=== PATIENT | male | born 1955 | race African-American/Black ===

== ENCOUNTER 2016-07-06 10:50 | Emergency (ER) | payer BC ==
--- NOTE | 2016-07-06 11:42 | ERNOTE ---
Date of Service: 07/06/16 Time Seen by Provider: 07/06/16 11:41 Stated Complaint: SINUS INFECTION Presenting Symptoms:: cough, runny nose Source: patient Exam Limitations: no limitations Immunizations: IMMUNIZATION HX Immunizations Up to Date Yes History of Influenza Vaccine No Hx Pneumococcal Vaccination No Allergies/Adverse Reactions: Allergies No Known Allergies Allergy (Verified 07/06/16 10:58) Home Medications: HOME MEDICATIONS Oxymetazoline HCl [Afrin] 2 sprays NS BID #1 bottle 05/07/16 [Last Taken Unknown ] Naproxen [Naprosyn] 500 mg PO BID PRN 07/06/16 [Last Taken Unknown] Pseudoephedrine HCl [Sudafed] 60 mg PO QID PRN 07/06/16 [Last Taken Unknown] - History of Present Ilness Date (Duration): 07/02/16 Timing: constant Severity: moderate Frequency/Possible Cause: Reports: frequent episodes Modifying Factors - Worsens: Reports: lying down Associated Symptoms: Reports: nasal congestion, nasal drainage - he states he has stuffy ears , no ear pain. . Denies: fever/chills Prior Treatment: Reports: treated by physician - states he was on a bid nasal spray. , other - says he saw a doctor several weeks ago for similar symptoms Review of Systems - Narrative Narrative: Pt. is concerned about having 5 days of chronic congestion with some cough . No SOB or known fever but some sweating in the a.m. He had similar problems about 2 months ago. He wonders if he has pneumonia. He is a smoker. His has had him on otc meds. He says he is more congested in the mornings. He denies any sinus pains and is generally healthy. Influ. is prominent in community. - Review of Systems Constitutional: Present: See HPI, recent illness EYE: Present: no symptoms reported ENT: Present: See HPI, ear pain, nose congestion, nasal drainage Respiratory: Present: cough Cardiology: Present: no symptoms reported Gastrointestinal/Abdominal: Present: no symptoms reported Genitourinary: Present: no symptoms reported Musculoskeletal: Present: no symptoms reported Skin: Present: no symptoms reported Neurological: Present: no symptoms reported Endocrine: Present: no symptoms reported Hematologic/Lymphatic: Present: no symptoms reported Psych: Present: no symptoms reported All Other Systems: All systems neg except as marked - Patient's Past Medical History Patient History - Medical: Chronic Pain Patient History - Cardiac/Respiratory: Hypertension Patient History - Cancer: No Hx of Cancer Patient History - Surgical Procedures: No surgical history Patient History - Other: None - Social History Living Situations: home Abuse History: No History of abuse Psych History: No pertinent hx Does anyone smoke in the home?: Yes Smoking Status: Current every day smoker Alcohol Use: none Drug Use: none - Immunizations Immunizations Up to Date: Yes Hx Pneumococcal Vaccination: No History of Influenza Vaccine: No Physical Exam - Physical Exam General Appearance: Present: wd/wn, alert, no apparent distress Eye Exam: Normal inspection: bilateral - normal , PERRL: bilateral - normal, EOMI: bilateral - normal, Eye drainage: bilateral - none Ears, Nose, Throat: Present: nasal congestion - red swollen turbinates with congestion. , pharyngeal erythema. Absent: sinus pain/drainage - no pain to percussion , pharyngeal swelling, tonsillar exudate, tonsillar swelling Neck: Present: normal inspection, nontender. Absent: lymphadenopathy (L) Respiratory: Present: no respiratory distress, normal breath sounds, no accessory muscle use, chest nontender, rhonchi - first large breath with ronchi which cleared after a cough and deep breath. Cardiovascular/Chest: Present: regular rate, rhythm, no murmur, normal peripheral pulses Neurological Exam: Present: alert, oriented, normal mood/affect Skin Exam: Present: normal color, warm/dry Lymphatic Exam: Present: no adenopathy ED Progress - Results and Orders Patient's Lab Results:: I have reviewed the patient's lab results. Results and Orders: influenza negative - Vital Signs Patient's Vital Signs:: I have reviewed the patient's vital signs. - pt= chronic htn. & may be using cold med with decongestant which I told him to d/c Vital Signs: Vital Signs 07/06/16 10:54 Temperature 36.2 C L Pulse Rate 64 Respiratory 18 Rate Blood Pressure 152/113 O2 Sat by Pulse 100 Oximetry - Progress/Reassessment Chief Complaint: Upper Respiratory Symptoms Departure - Departure Clinical Impression: URI (upper respiratory infection) Qualifiers: URI type: acute nasopharyngitis (common cold) Qualified Code(s): J00 - Acute nasopharyngitis [common cold] Disposition: Home self-care Condition: Good Instructions: Upper Respiratory Infection, Adult, [id number] Additional Instructions: Increase fluids to keep mucous loose. Use Neti-Pot ( salt water irrigation to nose) as directed to help clear up the mucous. use vaporizer at your bedside to help decrease congestion. Consider 3 days use only of afrin nasal spray. For longer term congestion, using over the counter nasocort or flonase twice a day may help. Your influenza was negative. Use tylenol for aches or pains or fever.
--- OUTSIDE RECORDS SUMMARY | 2016-07-06 11:46 | XMS REPORT | Summary of Care ---
:1955 Author Organization [facility] Address [address] [place] [address] Care Team Providers Name Role Phone Physician, Primary Care Primary Care Physician Unavailable Encounter Date(s): 06/15/16 - 06/15/[address] [id number] Discharge Disposition: 01 Discharged to Home or Self Care Attending Physician: AIMEE Wilkes Vital Signs No data available for this section Problem List No data available for this section Allergies, Adverse Reactions, Alerts No Known Medication Allergies Medications carvedilol 25 mg oral tablet 1 tab(s), Oral, BID, # 180 tab(s), 0 Refill(s), Start Date: 03/15/16 14:00:00 CDT, Pharmacy: [facility] [id number] Start Date: 03/15/16 Status: Orderedcarvedilol 25 mg oral tablet 1 tab(s), Oral, BID, 0 Refill(s), Start Date: 03/15/16 13:34:00 CDT Start Date: 03/15/16 Stop Date: 03/15/16 Status: DiscontinuedChantix Starter Pack 0.5 mg-1 mg oral tablet 1 tab(s), Oral, BID, as directed on package labeling, # 53 tab(s), 0 Refill(s), Start Date: 03/15/16 14:00:00 CDT, Pharmacy: [facility] [id number] Start Date: 03/15/16 Status: OrderedhydroCHLOROthiazide 25 mg oral tablet 1 tab(s), Oral, Daily, # 30 tab(s), 0 Refill(s), Start Date: 03/15/16 14:00:00 CDT Start Date: 03/15/16 Status: Orderedhydrocodone-acetaminophen 7.5mg-325mg oral tablet 1 tab(s), Oral, q6hr, PRN for pain, # 120 tab(s), 0 Refill(s), Start Date: 06/09 11:16:00 [employer], Pharmacy: [facility] [id number] Start Date: 06/09/16 Stop Date: 07/09/16 Status: Orderedlisinopril 40 mg oral tablet 1 tab(s), Oral, BID, # 180 tab(s), 0 Refill(s), Start Date: 03/15/16 13:59:00 CDT, [facility] [id number] Start Date: 03/15/16 Status: Orderedlisinopril 40 mg oral tablet 1 tab(s), Oral, BID, 0 Refill(s), Start Date: 03/15/16 13:34:00 CDT Start Date: 03/15/16 Stop Date: 03/15/16 Status: DiscontinuedNorco 7.5 mg-325 mg oral tablet tab(s), Oral, q6hr interval, 0 Refill(s), Start Date: 03/06/16 13:31:00 CDT Start Date: 03/06/16 Stop Date: 03/15/16 Status: DiscontinuedNorco 7.5 mg-325 mg oral tablet 1 tab(s), Oral, q6hr interval, X 30 days, # 120 tab(s), 0 Refill(s), Start Date : 04/12/16 10:41:15 [employer], Pharmacy: [facility] [id number] Start Date: 04/12/16 Stop Date: 05/10/16 Status: CompletedNorco 7.5 mg-325 mg oral tablet 1 tab(s), Oral, q6hr interval, X 30 days, # 120 tab(s), 0 Refill(s), Start Date : 05/10/16 9:02:34 ST[employer], Pharmacy: [facility] [id number] Start Date: 05/10/16 Stop Date: 06/09/16 Status: CompletedNorco 7.5 mg-325 mg oral tablet 1 tab(s), Oral, q6hr interval, X 30 days, # 120 tab(s), 0 Refill(s), Start Date : 03/15/16 13:58:00 CDT, Pharmacy: [facility] [id number] Start Date: 03/15/16 Stop Date: 04/12/16 Status: Completed Results No data available for this section Immunizations No data available for this section Procedures No data available for this section Social History No data available for this section Assessment and Plan No data available for this section
[2016-07-06 12:20] VITALS: BP 142/86
== END 2016-07-06 12:26 | disposition home or self-care (01) ==
LOC: ER 10:50
DX: J00 Acute nasopharyngitis [common cold] (principal); Z72.0 Tobacco use